=== PATIENT | female | born 1965 | race African-American/Black ===

== ENCOUNTER 2021-10-30 19:39 | Inpatient (IN) | payer MEDICAID ==
[~2021-10-30] VITALS: Ht 165.1 cm; Wt 91.4 kg
[2021-10-30] MEDS ORDERED: LABETALOL 5MG/ML SYR 20 MG/4 ML SYRINGE IV ONE (21:00)
[2021-10-30] MEDS ORDERED: ONDANSETRON HCL 4MG/2ML INJ IV STA (21:34)
[2021-10-30] MEDS ORDERED: MORPHINE SULFATE 4 MG/ML CPJ (NOT FOR IM USE) IV STA (21:34)
[2021-10-30] MEDS ORDERED: METOCLOPRAMIDE HCL 10MG/2ML VIAL IV ONE (21:45)
[2021-10-30] MEDS ORDERED: DIPHENHYDRAMINE 50MG/ML VIAL IV ONE (21:45)
[2021-10-30 22:01] LABS: BASOPHILS % 0.7 % (0.0-2.0); EOSINOPHILS % 0.6 % (0.0-5.0); HEMATOCRIT. 40.4 % (36.0-48.0); HEMOGLOBIN. 12.9 g/dL (12.0-16.0); LYMPHOCYTES % 20.4 % (20.0-50.0); MEAN CORPUSCULAR HEMOGLOBIN 26.3 pg (28.0-32.0); MEAN CORPUSCULAR VOLUME 82.7 fL (81.0-99.0); MEAN PLATELET VOLUME 7.2 fl (7.4-10.4); MONOCYTES % 5.3 % (2.0-8.0); PLATELET 200 x1000/uL (130-400); RED BLOOD CELL COUNT 4.88 mill/uL (4.2-5.4); RED CELL DISTRIBUTION WIDTH 17.9 % (11.6-14.6)
[2021-10-30 22:06] LABS: CHLORIDE 100 mEq/L (98-107)
[2021-10-31] MEDS ORDERED: HYDRALAZINE 20MG/ML VIAL IV ONE
[2021-10-31] MEDS ORDERED: INSULIN REGULAR (HUMULIN R) 300UNITS/3ML VIAL SUBCUT NR
[2021-10-31] MEDS ORDERED: INSULIN REGULAR (HUMULIN R) UD 100 UNITS/ML SYR SUBCUT ONE
[2021-10-31] MEDS ORDERED: LABETALOL 5MG/ML SYR 20 MG/4 ML SYRINGE IV ONE ×2 (01:15→11:45)
[2021-10-31] MEDS ORDERED: ACETAMINOPHEN 325MG TABLET PO ONE (03:00)
[2021-10-31] MEDS ORDERED: ACETAMINOPHEN 325MG TABLET PO PRN (06:15)
[2021-10-31] MEDS: HYDRALAZINE 20MG/ML VIAL IV PRN ×2 (06:45→06:56)
[2021-10-31] MEDS: ONDANSETRON HCL 4MG/2ML INJ IV PRN (06:56)
[2021-10-31] MEDS: NIFEDIPINE XL 60MG TAB PO SCH (07:04)
[2021-10-31] MEDS ORDERED: DIPHENHYDRAMINE 50MG/ML VIAL IV PRN (09:30)
[2021-10-31] MEDS ORDERED: IPRATROPIUM/ALBUTEROL 0.5-3(2.5)MG/3ML NEB HHN PRN (09:30)
[2021-10-31] MEDS: CLONIDINE 0.1MG TABLET PO PRN (10:50)
[2021-10-31 11:45] VITALS: BP 194/91
[2021-10-31 12:00] VITALS: BP 194/91
[2021-10-31 13:02] VITALS: BP 165/84
[2021-10-31 16:00] VITALS: BP 152/122
[2021-10-31 17:07] LABS: HEPATITIS B SURFACE ANTIGEN NEGATIVE
[2021-10-31] MEDS ORDERED: DEXTROSE 50% WATER 50ML SYRINGE IV PRN (17:15)
[2021-10-31] MEDS: BLOOD SUGAR DIAGNOSTIC STRIP TEST SCH ×2 (17:50→21:05)
[2021-10-31] MEDS: INSULIN LISPRO 100 UNITS/ML SUBCUT SCH ×2 (17:50→21:00)
[2021-10-31 20:00] VITALS: BP 134/53
[2021-11-01] VITALS: BP 152/65
[2021-11-01 04:00] VITALS: BP 156/78
[2021-11-01] MEDS: BLOOD SUGAR DIAGNOSTIC STRIP TEST SCH ×4 (06:21→21:39)
[2021-11-01 06:24] LABS: BASOPHILS % 0.6 % (0.0-2.0); HEMATOCRIT. 39.1 % (36.0-48.0); HEMOGLOBIN. 12.6 g/dL (12.0-16.0); LYMPHOCYTES % 20.8 % (20.0-50.0); MEAN CORPUSCULAR HEMOGLOBIN 26.6 pg (28.0-32.0); MEAN CORPUSCULAR VOLUME 82.3 fL (81.0-99.0); MEAN PLATELET VOLUME 7.9 fl (7.4-10.4); MONOCYTES % 5.9 % (2.0-8.0); NEUTROPHILS % 72.7 % (40.0-76.0); PLATELET 197 x1000/uL (130-400); RED BLOOD CELL COUNT 4.75 mill/uL (4.2-5.4); RED CELL DISTRIBUTION WIDTH 18.3 % (11.6-14.6)
[2021-11-01 06:49] LABS: CHLORIDE 102 mEq/L (98-107)
[2021-11-01 08:00] VITALS: BP 218/93
[2021-11-01] MEDS: CLONIDINE 0.1MG TABLET PO PRN (08:23)
[2021-11-01] MEDS: NIFEDIPINE XL 60MG TAB PO SCH (08:23)
[2021-11-01] MEDS: INSULIN LISPRO 100 UNITS/ML SUBCUT SCH ×4 (08:24→21:53)
[2021-11-01] MEDS: HYDRALAZINE 20MG/ML VIAL IV PRN (09:41)
[2021-11-01 12:00] VITALS: BP 156/86
[2021-11-01] MEDS: ACETAMINOPHEN 325MG TABLET PO PRN ×2 (13:06→21:38)
[2021-11-01 16:00] VITALS: BP 158/82
[2021-11-01 20:00] VITALS: BP 124/67
[2021-11-01 21:06] LABS: T4 FREE 1.21 ng/dL (0.76-1.46)
[2021-11-01 21:24] LABS: FOLIC ACID (FOLATE) SERUM 15.5 ng/mL (>5.38)
[2021-11-01] MEDS: CARVEDILOL 6.25 MG TABLET PO SCH (21:39)
[2021-11-02] VITALS (7 sets, daily range): BP systolic 108–169; BP diastolic 59–90
[2021-11-02] MEDS: CLONIDINE 0.1MG TABLET PO PRN (06:17)
[2021-11-02] MEDS: ONDANSETRON HCL 4MG/2ML INJ IV PRN ×2 (06:18→12:58)
[2021-11-02 06:25] LABS: BASOPHILS % 0.6 % (0.0-2.0); EOSINOPHILS % 0.1 % (0.0-5.0); HEMATOCRIT. 38.6 % (36.0-48.0); HEMOGLOBIN. 12.5 g/dL (12.0-16.0); LYMPHOCYTES % 39.5 % (20.0-50.0); MEAN CORPUSCULAR HEMOGLOBIN 26.7 pg (28.0-32.0); MEAN CORPUSCULAR VOLUME 82.6 fL (81.0-99.0); MEAN PLATELET VOLUME 7.9 fl (7.4-10.4); MONOCYTES % 8.8 % (2.0-8.0); PLATELET 180 x1000/uL (130-400); RED BLOOD CELL COUNT 4.67 mill/uL (4.2-5.4); RED CELL DISTRIBUTION WIDTH 17.8 % (11.6-14.6)
[2021-11-02] MEDS: BLOOD SUGAR DIAGNOSTIC STRIP TEST SCH ×4 (06:26→21:34)
[2021-11-02] MEDS: CARVEDILOL 6.25 MG TABLET PO SCH ×2 (09:56→21:20)
[2021-11-02] MEDS: NIFEDIPINE XL 60MG TAB PO SCH (09:56)
[2021-11-02] MEDS: INSULIN LISPRO 100 UNITS/ML SUBCUT SCH ×4 (10:05→21:34)
[2021-11-02] MEDS: ACETAMINOPHEN 325MG TABLET PO PRN ×2 (12:59→21:37)
[2021-11-02] MEDS ORDERED: PANTOPRAZOLE SODIUM 40 MG/VIAL IV SCH (14:15)
[2021-11-02 16:14] LABS: PROTHROMBIN TIME 10.4 sec (9.6-11.0)
[2021-11-02] MEDS ORDERED: *PATIENT'S OWN MEDICATION STORAGE XX SCH (22:30)
[2021-11-03] VITALS: BP 98/51
[2021-11-03] MEDS: BLOOD SUGAR DIAGNOSTIC STRIP TEST SCH ×4 (05:55→21:01)
[2021-11-03 06:42] LABS: PROTHROMBIN TIME 10.5 sec (9.6-11.0)
[2021-11-03 07:07] LABS: BASOPHILS % 0.4 % (0.0-2.0); EOSINOPHILS % 0.4 % (0.0-5.0); HEMATOCRIT. 38.9 % (36.0-48.0); HEMOGLOBIN. 12.2 g/dL (12.0-16.0); LYMPHOCYTES % 42.2 % (20.0-50.0); MEAN CORPUSCULAR HEMOGLOBIN 25.7 pg (28.0-32.0); MEAN CORPUSCULAR VOLUME 82.2 fL (81.0-99.0); MEAN PLATELET VOLUME 7.9 fl (7.4-10.4); MONOCYTES % 9.2 % (2.0-8.0); NEUTROPHILS % 47.8 % (40.0-76.0); PLATELET 211 x1000/uL (130-400); RED BLOOD CELL COUNT 4.73 mill/uL (4.2-5.4); RED CELL DISTRIBUTION WIDTH 17.7 % (11.6-14.6)
[2021-11-03] MEDS: INSULIN LISPRO 100 UNITS/ML SUBCUT SCH ×4 (07:47→21:05)
[2021-11-03 08:00] VITALS: BP 152/87
[2021-11-03] MEDS: PANTOPRAZOLE SODIUM 40 MG/VIAL IV SCH ×2 (09:00→16:26)
[2021-11-03] MEDS: NIFEDIPINE XL 60MG TAB PO SCH (09:00)
[2021-11-03] MEDS: CARVEDILOL 6.25 MG TABLET PO SCH ×2 (09:00→20:54)
[2021-11-03 12:00] VITALS: BP 145/79
[2021-11-03 16:00] VITALS: BP 176/91
[2021-11-03] MEDS: CLONIDINE 0.1MG TABLET PO PRN (16:26)
[2021-11-03 20:16] VITALS: BP 110/61
[2021-11-04] VITALS: BP 113/64
[2021-11-04 04:00] VITALS: BP 150/68
[2021-11-04] MEDS: BLOOD SUGAR DIAGNOSTIC STRIP TEST SCH ×4 (06:51→20:59)
[2021-11-04] MEDS: INSULIN LISPRO 100 UNITS/ML SUBCUT SCH ×4 (06:51→20:59)
[2021-11-04 06:55] LABS: BASOPHILS % 0.5 % (0.0-2.0); EOSINOPHILS % 1.1 % (0.0-5.0); HEMATOCRIT. 36.1 % (36.0-48.0); HEMOGLOBIN. 11.3 g/dL (12.0-16.0); LYMPHOCYTES % 44.7 % (20.0-50.0); MEAN CORPUSCULAR VOLUME 83.4 fL (81.0-99.0); MEAN PLATELET VOLUME 8.1 fl (7.4-10.4); MONOCYTES % 10.6 % (2.0-8.0); NEUTROPHILS % 43.1 % (40.0-76.0); PLATELET 198 x1000/uL (130-400); RED BLOOD CELL COUNT 4.33 mill/uL (4.2-5.4); RED CELL DISTRIBUTION WIDTH 17.5 % (11.6-14.6)
[2021-11-04 08:00] VITALS: BP 138/60
[2021-11-04] MEDS: NIFEDIPINE XL 60MG TAB PO SCH (08:51)
[2021-11-04] MEDS: CARVEDILOL 6.25 MG TABLET PO SCH ×2 (08:51→21:11)
[2021-11-04] MEDS: PANTOPRAZOLE SODIUM 40 MG/VIAL IV SCH ×2 (08:51→17:00)
[2021-11-04 12:00] VITALS: BP_SYST 138; BP_SYST 179; BP_DIAS 48; BP_DIAS 94
[2021-11-04] MEDS: HYDRALAZINE 20MG/ML VIAL IV PRN (12:42)
[2021-11-04 16:00] VITALS: BP 134/73
[2021-11-04 20:00] VITALS: BP 127/70
[2021-11-05] VITALS: BP 125/66
[2021-11-05 04:00] VITALS: BP 137/62
[2021-11-05] MEDS: BLOOD SUGAR DIAGNOSTIC STRIP TEST SCH ×4 (06:32→20:30)
[2021-11-05 06:52] LABS: BASOPHILS % 0.7 % (0.0-2.0); EOSINOPHILS % 3.1 % (0.0-5.0); HEMATOCRIT. 33.2 % (36.0-48.0); HEMOGLOBIN. 10.5 g/dL (12.0-16.0); LYMPHOCYTES % 60.5 % (20.0-50.0); MEAN CORPUSCULAR HEMOGLOBIN 25.7 pg (28.0-32.0); MEAN CORPUSCULAR VOLUME 81.6 fL (81.0-99.0); MEAN PLATELET VOLUME 7.9 fl (7.4-10.4); MONOCYTES % 8.5 % (2.0-8.0); NEUTROPHILS % 27.2 % (40.0-76.0); PLATELET 191 x1000/uL (130-400); RED BLOOD CELL COUNT 4.08 mill/uL (4.2-5.4); RED CELL DISTRIBUTION WIDTH 17.2 % (11.6-14.6)
[2021-11-05 08:00] VITALS: BP 178/82
[2021-11-05] MEDS: NIFEDIPINE XL 60MG TAB PO SCH (09:41)
[2021-11-05] MEDS: CARVEDILOL 6.25 MG TABLET PO SCH ×2 (09:41→20:30)
[2021-11-05] MEDS: INSULIN LISPRO 100 UNITS/ML SUBCUT SCH ×4 (09:41→20:30)
[2021-11-05] MEDS: PANTOPRAZOLE SODIUM 40 MG/VIAL IV SCH ×2 (09:58→17:05)
[2021-11-05 12:00] VITALS: BP 153/81
[2021-11-05 20:00] VITALS: BP 138/70
[2021-11-06] VITALS: BP 117/57
[2021-11-06 04:00] VITALS: BP 124/62
[2021-11-06 06:17] LABS: CLARITY URINE TURBID (CLEAR); COLOR URINE YELLOW (YELLOW); KETONES URINE NEGATIVE (NEGATIVE); LEUKOCYTE ESTERASE URINE 2+ (NEGATIVE); NITRITE URINE NEGATIVE (NEGATIVE); OCCULT BLOOD URINE 2+ (NEGATIVE); PROTEIN URINE 2+ (NEGATIVE); SPECIFIC GRAVITY URINE 1.012 (1.005-1.030)
[2021-11-06] MEDS: BLOOD SUGAR DIAGNOSTIC STRIP TEST SCH ×3 (06:21→17:28)
[2021-11-06 06:37] LABS: BASOPHILS % 0.9 % (0.0-2.0); EOSINOPHILS % 2.2 % (0.0-5.0); HEMATOCRIT. 31.8 % (36.0-48.0); HEMOGLOBIN. 10.2 g/dL (12.0-16.0); LYMPHOCYTES % 58.2 % (20.0-50.0); MEAN CORPUSCULAR HEMOGLOBIN 26.2 pg (28.0-32.0); MEAN CORPUSCULAR VOLUME 81.5 fL (81.0-99.0); NEUTROPHILS % 31.7 % (40.0-76.0); PLATELET 181 x1000/uL (130-400); RED CELL DISTRIBUTION WIDTH 17.1 % (11.6-14.6)
[2021-11-06 08:19] VITALS: BP 178/90
[2021-11-06] MEDS: INSULIN LISPRO 100 UNITS/ML SUBCUT SCH ×3 (08:21→17:38)
[2021-11-06] MEDS: PANTOPRAZOLE SODIUM 40 MG/VIAL IV SCH ×2 (08:22→17:39)
[2021-11-06] MEDS: NIFEDIPINE XL 60MG TAB PO SCH (08:22)
[2021-11-06] MEDS: CARVEDILOL 6.25 MG TABLET PO SCH (08:22)
[2021-11-06 11:54] LABS: GLUCOSE CSF 98 mg/dL (41-75)
[2021-11-06 12:00] VITALS: BP 166/86
[2021-11-06 12:24] VITALS: BP 166/86
[2021-11-06 16:35] VITALS: BP 166/86
[2021-11-06] MEDS ORDERED: PANT40TA51 MT (17:24)
[2021-11-06] MEDS ORDERED: INSU100I28 SQ (17:24)
[2021-11-06] MEDS ORDERED: NIFE-32 PO (17:24)
[2021-11-06] MEDS ORDERED: COR6 PO (17:24)
[2021-11-06] MEDS ORDERED: LANC-335 MC (18:57)
[2021-11-07 06:11] LABS: BARBITURATE SCREEN Negative ug/mL (Cutoff:0.1); BENZODIAZEPINE SCREEN Negative ng/mL (Cutoff:20); OPIATES SCREEN Negative ng/mL (Cutoff:5); PHENCYCLIDINE SCREEN Negative ng/mL (Cutoff:8)
== END 2021-11-06 20:51 | disposition home or self-care (01) | DRG 199 ==
LOC: ER 19:39 → 6WST 23:56 → ENRESERV 10-31 08:48
PROVIDERS: ADMIT Internal Medicine; ATTEND Internal Medicine
PROC: 5A1D70Z Performance of Urinary Filtration, Intermittent, Less than 6 Hours Per Day (ICD-10-PCS; principal; 2021-10-31)
PROC: 5A1D70Z Performance of Urinary Filtration, Intermittent, Less than 6 Hours Per Day (ICD-10-PCS; 2021-11-01)
PROC: 5A1D70Z Performance of Urinary Filtration, Intermittent, Less than 6 Hours Per Day (ICD-10-PCS; 2021-11-03)
PROC: 5A1D70Z Performance of Urinary Filtration, Intermittent, Less than 6 Hours Per Day (ICD-10-PCS; 2021-11-06)
PROC: 009U3ZX Drainage of Spinal Canal, Percutaneous Approach, Diagnostic (ICD-10-PCS; 2021-11-06)
PROC: B01BZZZ Fluoroscopy of Spinal Cord (ICD-10-PCS; 2021-11-06)
DX: I16.0 Hypertensive urgency (principal); G92.8 Other toxic encephalopathy; I67.4 Hypertensive encephalopathy; N18.6 End stage renal disease; E11.22 Type 2 diabetes mellitus with diabetic chronic kidney disease; D64.9 Anemia, unspecified; F17.200 Nicotine dependence, unspecified, uncomplicated; R11.2 Nausea with vomiting, unspecified; R10.13 Epigastric pain; Z20.822 Contact with and (suspected) exposure to COVID-19; I13.11 Hypertensive heart and chronic kidney disease without heart failure, with stage 5 chronic kidney disease, or end stage renal disease; T46.5X6A Underdosing of other antihypertensive drugs, initial encounter; Y92.89 Other specified places as the place of occurrence of the external cause; Z99.2 Dependence on renal dialysis
CPT/HCPCS: 36415; 62328; 70551; 71045; 80048; 80053; 80307; 80320; 81003; 82140; 82607; 82746; 82945; 82962; 83036; 84145; 84157; 84439; 84443; 84481; 84484; 85025; 85044; 86635; 86705; 86709; 86803; 87340; 87426; 87529; 87899; 93005; 93970; 97161; 99285; C1893; C9113; J0360; J1200; J1815; J2270; J2405; J2765; J3490; G0480